=== PATIENT | female | born 1955 | race Caucasian/White ===

== ENCOUNTER 2021-08-11 00:18 | Emergency (ER) | payer SELFPAY ==
[2021-08-11] MEDS ORDERED: AMIODARONE 450 MG in IV DEXTROSE 5% 250 ML IV ONE (01:00)
--- NOTE | 2021-08-11 01:36 | PHYS DOC ---
Past Medical History Past Medical History: Renal Disease, Renal Failure Smoking Status: Unknown if ever smoked General Adult EDM: Chief Complaint: CPR/FULL ARREST HPI: HPI: Patient is a 68 year old female who is brought in by EMS from home. The [facility] call was for evaluation of shortness of breath. EMS reports they found ST ovation on EKG, they were going to activate a STEMI but she arrested in route. It sounds like she developed bradycardia and then eventually PEA. CPR was started, she was being bagged, no definitive airway had been established. No epinephrine had been established on arrival, they called report as the rolling into the parking lot. I am unable to procure any information from the patient at this time, because she is full cardiac arrest, unresponsive. She has a hospital bracelet on her left arm from [facility]. Her reports to me that she had been discharged yesterday. She had been admitted for over a week, and he alludes to her having an infection in her chest and on her one of her heart valves. She reportedly saw a family educator but they were unable to give any information about this. The patient reportedly had been feeling well earlier in the day, she ate food well, and she last ate dinner lea und 8:30 PM, and then shortly prior to EMS being called, the patient had gotten out of bed and reported that she felt short of breath. No prior records are available here. The patient has end-stage kidney disease, dialyzes 3 days a week. No missed dialysis reported. Review of Systems: Review of Systems: Review of systems is limited secondary to patient's clinical condition. See HPI. Heart Score: C/O Chest Pain: N/A Risk Factors: Risk Factors: DM, Current or recent (<one month) smoker, HTN, HLP, family history of CAD, obesity. Risk Scores: Score 0 - 3: 2.5% MACE over next 6 weeks - Discharge Home Score 4 - 6: 20.3% MACE over next 6 weeks - Admit for Clinical Observation Score 7 - 10: 72.7% MACE over next 6 weeks - Early Invasive Strategies Current Medications: Current Medications Medications (Trade) Dose Ordered Sig/Amelie Start Time Stop Time Status Last Admin Dose Admin Amiodarone HCl 450 mg/Dextrose 259 ml @ 33 mls/hr 1X ONCE 08/11/21 01:00 08/11/21 08:50 Allergies: Allergies: Allergies Coded Allergies Type Severity Reaction Last Updated Verified Unable to Assess 08/11/21 No Physical Exam: PE: Constitutional: Moribund, unresponsive, CPR in progress, chronically ill- appearing HENT: Normocephalic, atraumatic, vomitus in oropharynx, no evidence of facial trauma noted, external ears normal bilaterally. Eyes: Pupils are nonreactive, symmetric, no scleral icterus Neck: Trachea is mid Cardiovascular: Pulseless, no heart tones auscultated Lungs & Thorax: Minimal gagging, no effective or spontaneous respirations. After intubation, equal chest rise, bilateral and coarse breath sounds are noted. Abdomen: Abdomen is obese, soft, mildly distended, no evidence of trauma Skin: Distal extremities are cool and pale, no peripheral or central pulses palpated, Extremities: No acute limb deformities noted. 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 Stump site is clean, dry, intact Neurologic: She is unresponsive. No spontaneous motor movement, no verbal response, no facial asymmetry is noted, she does not localize to pain, gag reflex not intact, no localization of pain, no purposeful movement Psychologic: Unresponsive EKG: EKG: [] Radiology/Procedures: Radiology/Procedures: [] Course & Med Decision Making: Course & Med Decision Making ACLS protocol was continued and initiated. Multiple doses of ibuprofen were given. IV calcium was given, IV sodium bicarbonate was given. She had 2 episodes of fine ventricular fibrillation. Defibrillation shocks are administered. IV amiodarone bolus and drip ordered. Please see associated intubation note for details. Her airway was secured, copious vomitus was removed from her airway and oropharynx. PEA rhythm remained. Multiple bedside ultrasound exams were performed by me, no meaningful cardiac contractility was noted. After prolonged resuscitation efforts, she remains pulseless, apneic, completely unresponsive, pupils are fixed and dilated. She ultimately became bradycardic and asystole was confirmed on ultrasound and telemetry. Time of was called at 0120. I brought the family into the room, I discussed all of our efforts with them. They understand that there does not appear to be anything else to be done at this point, they understand the need to cease resuscitative efforts. Please see nursing notes for details regarding timelines and medication administration times. The patient's primary care doctor is Dr. Winchester. Her office is contacted in order to speak with the on-call physician or with her directly to inform them of her . I was able to speak with her primary care physicians workforce consultant [employer], informed her of the patient's . Dr. Winchester will sign the certificate. Dragon Disclaimer: Dragon Disclaimer: This electronic medical record was generated, in whole or in part, using a voice recognition dictation system. Intubation Procedure Intub Indication: Respiratory failure Consent: Unable to give consent due to emergent nature. Medications Used: see nursing note Procedure: The patient was placed in the appropriate position. The patient was preoxygenated as much as possible with [id number]. The patient was intubated using a 7.5 endotracheal tube, using direct realization and manual laryngoscopy. The endotracheal tube was visualized going through the cords. Position was confirmed by bilateral breath sound auscultation. A copious amount of vomitus then came up through the endotracheal tube. The tube was filled with vomit, the Ambu bag became filled with vomit, she was unable to be bagged. The contaminated and vomit filled endotracheal tube was subsequently removed. The patient was bagged again and preoxygenated. I was able to then place a 7.0 endotracheal tube using direct, manual laryngoscopy. Once again, the endotracheal tube was visualized going through the cords, confirmation of endotracheal tube placement. Copious secretions required suctioning from the endotracheal tube. The tube was secured at 24 cm at the lips. Initial confirmation of placement included bilateral breath sounds, tube fogging, adequate chest rise, adequate pulse oximetry reading. The patient tolerated the procedure well. Complications: none. Departure Departure Impression: Primary Impression: Cardiac arrest Disposition: 20 Condition: PRISCILLA HESTER DO Aug 11, 2021 01:36
[2021-08-11] MEDS ORDERED: AMIODARONE 150 MG/3 ML VIAL ONE (12:00)
[2021-08-11] MEDS ORDERED: CALCIUM CHLORIDE 1,000 MG/10 ML DISP.SYRIN ONE (12:00)
[2021-08-11] MEDS ORDERED: EPINEPHrine SYRINGE 1 MG/10 ML SYRINGE. ONE ×2 (12:00)
[2021-08-11] MEDS ORDERED: SODIUM BICARB ADULT 8.4% 50 MEQ/50 ML DISP.SYRIN. ONE (12:00)
== END 2021-08-11 03:51 ==
LOC: ER 00:18 → MERGE 00:18 → ER 03:51
DX: I46.9 Cardiac arrest, cause unspecified (principal); N18.6 End stage renal disease; Z99.2 Dependence on renal dialysis
CPT/HCPCS: 31500; 31720; 82962; 92950; 94760; 99285; J0171; J0282; J3490